=== PATIENT | male | born 1940 | race Caucasian/White ===

== ENCOUNTER 2017-12-30 11:13 | Outpatient (RCR) | payer MEDICARE, OTHER ==
[2017-12-27 10:21] LABS: PLATELET COUNT, AUTOMATED 180 K/uL (150-450)
[~2017-12-30 11:13] MED LIST: 0.910DIS17 IVP; ACET-2031 PO; ASC500 PO; ASPI-715 PO; CAR3.125 PO; CHOL10005 PO; DUONEB INH; FIN5 PO; FISH OIL 1,2001 CAP PO; GLUC-130 PO; GUAI600T PO; HYDR473S4 PO; LEVO750T23 PO; METO25TA23 PO; METO25TA93 PO; MULT1CAP41 PO; OMEP-218 PO; PANT40SU3 PO; PANT40TA65 PO; PRE5 PO; RAMI5CAP63 PO; SIMV-44 PO; SIMV10TA98 PO; SIMV5TAB60 PO; TAM4 PO; [UNRECOGNIZED DRUG - CODE] IV; [UNRECOGNIZED DRUG - CODE] IV; [UNRECOGNIZED DRUG - CODE] PO
[2017-12-30 11:20] VITALS: BP 143/76
--- NOTE | 2017-12-31 17:49 | ONCOLOGY FOLLOW UP NOTE ---
EVENT DATE: December 30, 2017 CHIEF COMPLAINT/REASON FOR VISIT Mr. Astudillo is a very pleasant gentleman with a history of low risk MDS with an IPSS score of 0, here for followup. HISTORY OF PRESENT ILLNESS Gagan returns. Overall he is doing okay. His cardiopulmonary issues are his biggest issue and there is concern for pulmonary hypertension. His MDS is quite stable and his labs are similar today as they were a year ago. He does require oxygen 24/7, and this is mostly unrelated to his MDS, as we would not expect to see a lower pulse oximetry with anemia alone. We did again discuss the rationale for erythropoietin therapy, but he is not interested at this time. His hemoglobin ranges between 9.5 and 11. His daughter continues to do quite well on a clinical trial for glioblastoma and she is actually back at work which is very exciting. Her therapy has been FDA approved now, although she still participates through the trial. No new issues today. SOCIAL HISTORY The patient is and has presented again with his . 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 FAMILY HISTORY Noncontributory. REVIEW OF SYSTEMS CONSTITUTIONAL: No fevers, chills, weight change or fatigue of concern. HEENT: No headache or vision changes. CARDIOVASCULAR: No chest pain, dyspnea on exertion or edema. RESPIRATORY: Positive dyspnea on exertion mild. Positive hypoxemia at altitude , on oxygen. Positive history of sleep apnea as well. GI: No nausea, vomiting. : No dysuria or hematuria. PSYCHIATRIC: No anxiety or depression. ENDOCRINE: No heat or cold intolerance. SKIN: No concerning lesions or rashes. HEMATOLOGIC/LYMPHATIC: No easy bruising or bleeding. Remainder of 14-point review of systems otherwise negative. PHYSICAL EXAMINATION VITAL SIGNS: Blood pressure 143/76, pulse 56, respiratory rate 16, temperature 97.1 Fahrenheit, oxygen saturation 90% on room air. Weight 73.3 kg. Pain 0/10 , fatigue 0/10. GENERAL: In stable condition, resting comfortably in the chair. HEENT: Normocephalic, atraumatic. CARDIOVASCULAR: Regular rate and rhythm. LUNGS: Clear. ABDOMEN: Soft, nontender. EXTREMITIES: No clubbing, cyanosis or edema. SKIN: No concerning rashes or lesions. No bruising. The remainder of the physical exam is otherwise unremarkable. IMPRESSION AND PLAN Mr. Astudillo is a very pleasant gentleman with the following: Low-grade myelodysplastic syndrome under active surveillance. We again discussed his treatment options including EPO. He is not interested in this at this time. Plan to see him every six months. We discussed potentially getting labs every three months, but he has been quite stable and he wants to manage costs. His insurance does cover his care overall well he believes. I answered all of his questions. We had a discussion about his daughter who has glioblastoma in [place] as well. High risk, high complexity. Billing: Return visit level 4. Total time 30 minutes, counseling time 20. MTDD
== END 2018-01-15 13:54 | disposition home or self-care (01) ==
LOC: ONC 11:13
PROVIDERS: ATTEND Internal Medicine
DX: D46.9 Myelodysplastic syndrome, unspecified (principal); Z99.81 Dependence on supplemental oxygen
CPT/HCPCS: 36415; 85025; G0463; 82040; 82247; 82310; 82374; 82435; 82565; 82947; 84075; 84132; 84155; 84295; 84450; 84460; 84520; 99212

== ENCOUNTER 2018-06-23 09:22 | Outpatient (RCR) | payer MEDICARE, OTHER ==
[2018-06-20 09:21] VITALS: BP 159/69
[2018-06-20 09:42] LABS: PLATELET COUNT, AUTOMATED 127 K/uL (150-450)
[2018-06-23 09:27] VITALS: BP 147/80
[2018-06-23] MEDS ORDERED: IBUP200C74 PO (09:29)
--- NOTE | 2018-06-24 03:45 | [facility] ONCOLOGY NOTE ---
EVENT DATE: June 23, 2018 CHIEF COMPLAINT/REASON FOR VISIT Mr. Astudillo is a very pleasant 78-year-old gentleman with low-grade MDS with an IPSS score of zero, here for followup. HISTORY OF PRESENT ILLNESS Gagan returns. Overall he is doing well. His biggest issues continue to be cardiopulmonary issues, and he follows with Cardiology. His MDS is quite stable, and his hemoglobin ranges between 10 and 12. He does require oxygen at night, but I do not believe this is related to his MDS. We discussed the potential for erythropoietin therapy in the future, but he is not interested and does not require it at this time. His daughter continues to do quite well from glioblastoma and was on the recent viral clinical trial with good success. Therapy has now been FDA-approved. No other issues today. SOCIAL HISTORY The patient is and has presented again with his . 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 FAMILY HISTORY Noncontributory. REVIEW OF SYSTEMS CONSTITUTIONAL: No fevers, chills, weight change or fatigue of concern. HEENT: No headache or vision changes. CARDIOVASCULAR: No chest pain, dyspnea on exertion or edema. RESPIRATORY: Positive dyspnea on exertion, mild. Positive hypoxemia at altitude, on oxygen. Positive history of sleep apnea as well. GI: No nausea, vomiting. : No dysuria or hematuria. PSYCHIATRIC: No anxiety or depression. ENDOCRINE: No heat or cold intolerance. SKIN: No concerning lesions or rashes. HEMATOLOGIC/LYMPHATIC: No easy bruising or bleeding. Remainder of 14-point review of systems otherwise negative. PHYSICAL EXAMINATION VITAL SIGNS: Blood pressure 147/80, pulse 67, respiratory rate 16, temperature 96.9 Fahrenheit, oxygen saturation 93% on room air. Weight 72.8 kg. Pain 4/10, fatigue 0/10. GENERAL: In stable condition, resting comfortably in the chair. HEENT: Normocephalic, atraumatic. CARDIOVASCULAR: Regular rate and rhythm. LUNGS: Clear. ABDOMEN: Soft, nontender, nondistended. EXTREMITIES: No clubbing, cyanosis or edema. LYMPHATIC: No abnormalities today. Remainder of physical exam unremarkable. IMPRESSION/REPORT/PLAN Mr. Astudillo is a very pleasant gentleman with the following: Low-grade myelodysplastic syndrome under active surveillance. We again discussed treatment options including EPO. He was very interested in the current research going on in myeloid malignancies, and we discussed that in detail today. We discussed the potential for venetoclax and Vidaza in the future if this is approved. It is currently not approved for low-risk myelodysplastic syndrome. He would like to get labs every six months, and I think this is reasonable given his stable labs. Over 20 minutes spent in counseling and answering questions today; high risk and complexity. BILLING: Return visit, level 4. Total time 30 minutes, counseling time 20. MTDD
== END 2018-07-16 13:25 | disposition home or self-care (01) ==
LOC: ONC 09:22
PROVIDERS: ATTEND Internal Medicine
DX: D46.9 Myelodysplastic syndrome, unspecified (principal); Z99.81 Dependence on supplemental oxygen
CPT/HCPCS: 36415; 85025; G0463; 82040; 82247; 82310; 82374; 82435; 82565; 82947; 84075; 84132; 84155; 84295; 84450; 84460; 84520; 99212

== ENCOUNTER 2018-07-04 08:15 | Outpatient (RCR) | payer MEDICARE, OTHER ==
--- NOTE | 2018-06-24 13:29 | PT INITIAL EVALUATION ---
MEDICAL DIAGNOSIS: Upper Back Pain TREATMENT DIAGNOSIS: LBP DATE OF ONSET: 06/18/18 SUBJECTIVE: Dong is a 78 year old man presenting to physical therapy for low back pain. Pain started last 06/18/18 after picking up his pug to put into the kennel in the car. Pt experienced immediate pain in low back. Pain has gotten better over the last week. Pt rates his pain at a 2-3/10. Pt states side-lying while sleeping makes pain better. Pt reports that standing from sitting and walking makes pain worse but pt was able to walk 40 minutes on the treadmill yesterday without restrictions. Pt is taking Advil occasionally to relive pain. No numbness or tingling radiating down either leg and pain is located at L4, slightly to the left. REHAB PROBLEM LIST: Increased Pain Decreased ROM Decreased Function Decreased ADL's Decreased Mobility PREVIOUS MEDICAL HISTORY: See EMR. History of oncology treatment. OBJECTIVE: ROM: Lumbar ROM: Flexion: Full, no pain. Extension: Full, slight pain in back. R side bend: Full, no pain. L SB: Minimal restrictions with pain in the back. R Rotation: Minimally restricted, no pain. L Rotation: Full, slight pain in the back. Palpation: Pt is tender to palpation at the L4 level and medial to the PSIS on the L. Mobility: Repeated movement lumbar screen: Flexion: no change in the pain. Extension: slight improvement in pain. Improved range of motion following repeated extension into R Rotation. Other Objective Findings: Oswestry Low Back Pain Disability Questionnaire: 9.5/50. ASSESSMENT: Pt presents with signs and symptoms consistent with lumbar strain with possible posterior derangement. Physical therapy is indicated to address the above listed impairments to improve ADL's. Short Term Goals Pt will improve lumbar ROM to full lumbar ROM within the next 4 weeks to improve overall function with ADL's. Pt will decrease to no pain within the next 4 weeks to improve overall function with ADL's. Pt will decrease Oswestry Low Back Pain Disability Questionnaire to1/50 to improve overall function with ADL's. Patient's Goals Decrease back pain. PLAN: Patient to be seen for Manual Therapy/STM/MET Strengthening/condition Range of Motion Spinal Stabilization Stretching Closed Chain Program Posture/Body mechanics Home Exercise Program Mech./Manual Traction Pelvic Floor 2x/Week for 4 Weeks If you have any questions, comments, or concerns about this report or plan, please contact me at . Thank you, Corry Stratton, PT, DPT, CLT MTDD
[~2018-07-04 08:15] MED LIST changes: +IBUP200C74 PO
--- NOTE | 2018-07-04 09:12 | PT PLAN OF CARE ---
Physician: Jasen Oseguera MD Patient is being seen: 2-3x/wk Therapist: Corry Stratton, PT, DPT, CLT & Inna Concepcion, SPT Medical Diagnosis: Upper Back Pain Treatment Diagnosis: LBP Date of Onset: 06/18/18 Date of Initial Evaluation: 06/24/18 Date patient was last seen: 07/02/18 Number of treatments: 2 Number of cancellations/No shows: 0 INTERVENTIONS: Manual Therapy/STM/MET Strengthening/condition Range of Motion Spinal Stabilization Stretching Closed Chain Program Posture/Body mechanics Home Exercise Program Mech./Manual Traction Pelvic Floor GOALS: Pt will improve lumbar ROM to full lumbar ROM within the next 4 weeks to improve overall function with ADL's. MET Pt will decrease to no pain within the next 4 weeks to improve overall function with ADL's. MET Pt will decrease Oswestry Low Back Pain Disability Questionnaire to 1/50 to improve overall function with ADL's. MET PATIENT'S GOAL: Decrease back pain. Status of Patient's Goals: 3/3 Goals Met Patient Compliance: Good Prognosis: Excellent Reasons for discharge from therapy: Dong is to discharge from physical therapy at this time secondary to completion of 3/3 functional goals. At the time of discharge pt has no pain with ADL's or recreational activities and is able to demonstrate good lifting and walking mechanics with core stability. Upon discharge pt is to continue with his HEP to maintain pain free status as well as seek further PT if any pain recurs. ROM: Lumbar ROM: All full, no pain. Mobility: Repeated movement lumbar screen: Flexion: no change in the pain. Extension: slight improvement in pain. Improved range of motion following repeated extension into R Rotation. Outcome Measures: Oswestry Low Back Pain Disability Questionnaire: 0/50. If you have any questions or concerns, please feel free to contact me at [phone]. Thank you, Corry Stratton, PT, DPT, CLT Inna Concepcion, SPT This Physical Therapist was present for the entire physical therapy session directing the services, making the skilled judgement, and was not engaged in treating another patient or doing another task at the same time as the treatment session. JULIANA
== END 2018-07-04 14:56 | disposition home or self-care (01) ==
LOC: PT 08:15
PROVIDERS: ATTEND Internal Medicine
DX: M54.5 Low back pain (principal)
CPT/HCPCS: 97161

== ENCOUNTER 2018-12-19 13:44 | Outpatient (RCR) | payer MEDICARE, OTHER ==
[~2018-12-19 13:44] MED LIST changes: -SIMV5TAB60 PO; +SIMV5TAB69 PO
== END 2018-12-22 17:06 | disposition home or self-care (01) ==
LOC: ONC 13:44
PROVIDERS: ATTEND Internal Medicine
DX: D46.9 Myelodysplastic syndrome, unspecified (principal)

== ENCOUNTER 2019-01-05 08:44 | Outpatient (RCR) | payer MEDICARE, OTHER ==
[2018-12-29 09:29] VITALS: BP 158/71
[2018-12-29 09:48] LABS: PLATELET COUNT, AUTOMATED 109 K/uL (150-450)
[2019-01-05 08:56] VITALS: BP 126/66
--- NOTE | 2019-01-06 08:41 | [facility] ONCOLOGY NOTE ---
EVENT DATE: January 05, 2019 CHIEF COMPLAINT/REASON FOR VISIT Mr. Astudillo is a pleasant 78-year old with low-grade MDS with an IPSS score of 0, here for followup. HISTORY OF PRESENT ILLNESS Gagan returns. Overall, he is doing well. His biggest issues continue to be cardiopulmonary and he follows with cardiology. He has shortness of breath and requires oxygen at times. His MDS has been stable with a hemoglobin ranging between 10 and 12 and so we have not yet initiated erythropoietin therapy. His white blood cell count is slightly lower than average, although he feels well and has not had issues with infection. I feel we need to watch him more closely than we have in the past - every six months. He would not like to be seen frequently but would agree to be seen in four months. He had one infection over the wound area, easily treated with antibiotics. No other issues to complain. He notes no changes. His daughter continues to do well from her glioblastoma and was on a recent viral clinical trial with good success. This therapy has now been FDA approved. SOCIAL HISTORY The patient is and has presented again with his . 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 FAMILY HISTORY Noncontributory. REVIEW OF SYSTEMS CONSTITUTIONAL: No fevers, chills, weight change or fatigue of concern. HEENT: No headache or vision changes. CARDIOVASCULAR: No chest pain, dyspnea on exertion or edema. RESPIRATORY: Positive dyspnea on exertion, mild. Positive hypoxemia at altitude, on oxygen. Positive history of sleep apnea as well. GI: No nausea, vomiting. : No dysuria or hematuria. PSYCHIATRIC: No anxiety or depression. ENDOCRINE: No heat or cold intolerance. SKIN: No concerning lesions or rashes. HEMATOLOGIC/LYMPHATIC: No easy bruising or bleeding. Remainder of 14-point review of systems otherwise negative. PHYSICAL EXAMINATION VITAL SIGNS: Blood pressure 126/66, pulse 61, respiratory rate 16, temperature 97.3 Fahrenheit, oxygen saturation 92% on room air. Weight 73.6 kg. Pain 0/10, fatigue 0/10. GENERAL: In stable condition, resting comfortably in the chair. HEENT: Normocephalic, atraumatic. LYMPHATIC: No appreciable cervical, supraclavicular or axillary adenopathy. CARDIOVASCULAR: Regular rate and rhythm today. LUNGS: Clear. ABDOMEN: Soft, nontender. No organomegaly or masses. EXTREMITIES: No clubbing, cyanosis or edema. SKIN: No rashes or lesions. PSYCHIATRIC: Normal mood and affect. Remainder of physical exam unremarkable. IMPRESSION/REPORT/PLAN Mr. Astudillo is a very pleasant gentleman with the following: Low-grade myelodysplastic syndrome, under active surveillance. We again discussed treatment options including EPO. We could look at the potential for venetoclax with Vidaza in the future if it is approved - it is not currently approved for low-risk myelodysplastic syndrome. He would like to get labs every six months but I think we need to check him sooner than that given the low white blood cell count most recently. He agrees to be seen in four months. Over 20 minutes spent in time answering questions today; high risk complexity. BILLING: Return visit, level 4. Total time 30 minutes, counseling time 20. MTDD
== END 2019-01-19 16:52 | disposition home or self-care (01) ==
LOC: ONC 08:44
PROVIDERS: ATTEND Internal Medicine
DX: D46.9 Myelodysplastic syndrome, unspecified (principal)
CPT/HCPCS: 36415; 82040; 82247; 82310; 82374; 82435; 82565; 82947; 84075; 84132; 84155; 84295; 84450; 84460; 84520; 85025; 99212

== ENCOUNTER 2019-02-25 13:55 | Inpatient (IN) | payer MEDICARE, OTHER ==
[~2019-02-25] VITALS: Ht 167.6 cm; Wt 72.9 kg
[2019-02-25] MEDS ORDERED: METO25TA93 PO (14:07)
[2019-02-25] MEDS ORDERED: NS(*) 0.9% 1000 ML BAG 1,000 ML IV ONE ×2 (14:11→14:15)
[2019-02-25 14:21] LABS: PLATELET COUNT, AUTOMATED 111 K/uL (150-450)
[2019-02-25] MEDS ORDERED: ALBUTEROL/IPRATROPIUM 3 ML NEB NEB ONE (14:30)
--- NOTE | 2019-02-25 14:36 | ER Report ---
History and Physical Time Seen By MD: 14:14 Hx. of Stated Complaint: COUGH, DECREASED OXYGEN SATURATIONS, FEVER HPI/ROS CHIEF COMPLAINT: Cough and shortness of breath HISTORY OF PRESENT ILLNESS: This is a 71-year-old male who presents to the emergency department for cough and shortness of breath. Patient states that over the last 2 days he's been feeling ill, subjectively he's had chills, no aches. With some shortness of breath, and a productive cough. He followed up with his primary care today, they noted that his oxygen on arrival was 83%, diminished lung sounds subsequently he was sent to the emergency department. Upon arrival the patient's oxygen is 84% on room air, he has a 101.5 temperature. He has been increasing his oxygen use with last couple days as well, typically he wears his oxygen only at night for sleep apnea. No headaches although his states that his cognition has been delayed or last day to day and a half. No rashes. He denies chest pain, he does have a significant cardiac history, including bypass surgery and CAD. No abdominal pain, nausea or vomiting. No diarrhea. REVIEW OF SYSTEMS: Constitutional: As above. Eyes: No discharge. ENT: No sore throat. Cardiovascular: No chest pain, no palpitations. Respiratory: As above. Gastrointestinal: No abdominal pain, no vomiting. Genitourinary: No hematuria. Musculoskeletal: No back pain. Skin: No rashes. Neurological: As above. Allergies: Coded Allergies: No Known Drug Allergies (Verified , 02/25/19) Home Meds Reported Medications Cholecalciferol (Vitamin D3) (VITAMIN D-3) 2,000 Unit Capsule, 5000 UNIT PO, CAPSULE 02/25/19 Metoprolol Tartrate (METOPROLOL TARTRATE) 25 Mg Tablet, 1 TAB PO QHS, TAB 02/25/19 Ibuprofen (ADVIL) 200 Mg Capsule, 1-2 CAP PO PRN, CAPSULE 06/23/18 Tamsulosin Hcl (Flomax) 0.4 Mg Cap, 0.4 MG PO DAILY, 0 Refills 12/15/09 Ramipril (Ramipril) 5 Mg Capsule, 5 MG PO HS, 0 Refills 12/15/09 Finasteride (Proscar) 5 Mg Tab, 5 MG PO DAILY, 0 Refills 12/15/09 Aspirin (Aspirin) 81 Mg Tablet.dr, 40 MG PO QODAY, 0 Refills 12/15/09 Discontinued Reported Medications Cholecalciferol (Vitamin D3) (VITAMIN D3) 1,000 Unit Tablet, 5000 UNIT PO, TAB 02/25/19 Cholecalciferol (Vitamin D3) (VITAMIN D3) 1,000 Unit Tablet, 1000 UNIT PO DAILY, TAB 10/10/16 Past Medical/Surgical History The patient has a past medical and surgical history of angina, CAD, bypass surgery, hypertension, hypercholesterolemia, sleep apnea, CPAP, pneumonia, anemia, colonoscopy, decreased urinary stream, elevated PSA, prostate biopsy, bone cancer in he'll at 9 years old, broken arm, wears glasses, aortic valve replacement, aortic aneurysm, right inguinal hernia repair, hip surgery 2, cataract surgery. Tonsillectomy. 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 Reviewed Nurses Notes: Yes Hx Smoking: No Smoking Status: Never Smoker Exposure to Second Hand Smoke?: No Hx Substance Use Disorder: No Hx Alcohol Use: No Constitutional Vital Sign - Last 24 Hours 02/25/19 02/25/19 02/25/19 02/25/19 13:59 14:00 14:19 14:30 Temp 101.5 Pulse 71 71 71 Resp 20 18 B/P (MAP) 124/56 123/58 (79) 105/59 (74) Pulse Ox 84 92 93 O2 Delivery Room Air O2 Flow Rate 2.0 02/25/19 02/25/19 02/25/19 02/25/19 14:32 14:32 14:42 15:00 Pulse 70 70 Resp 18 18 B/P (MAP) 111/52 (71) Pulse Ox 91 O2 Delivery Nasal Cannula O2 Flow Rate 2.0 02/25/19 15:30 Pulse 71 Resp 24 B/P (MAP) 106/58 (74) Pulse Ox 86 Physical Exam General Appearance: The patient is alert, has no immediate need for airway protection and no signs of toxicity. Eyes: Pupils equal and round no pallor or injection. ENT, Mouth: Mucous membranes are moist. Respiratory: Right lower base diminished, very faint and asked for a wheeze in the right middle and course in the right upper lobe, left lower lobe rhonchorous, left upper lobe clear. Cardiovascular: Regular rate and rhythm. Significant systolic murmur, no clicks or rubs. Gastrointestinal: Abdomen is soft and non tender, no masses, bowel sounds normal. Neurological: Alert and oriented 4, slightly delayed in answering questions although answering appropriately, moving all extremities. Following all commands. No focal neuro deficits. Skin: Warm and dry, no rashes. Musculoskeletal: Neck is supple non tender. Extremities are nontender, nonswollen and have full range of motion. DIFFERENTIAL DIAGNOSIS: After history and physical exam differential diagnosis was considered for shortness of breath including but not limited to pulmonary infectious process, COPD, asthma, pulmonary embolus and congestive heart failure. Medical Decision Making Data Points Result Diagram: 02/25/19 1404 02/25/19 1404 Laboratory Hematology Test 02/25/19 14:04 White Blood Count 2.1 k/uL (4.5-11.0) L Red Blood Count 3.80 M/uL (4.00-5.60) L Hemoglobin 11.4 g/dL (14.0-18.0) L Hematocrit 34.5 % (42.0-52.0) L Mean Corpuscular Volume 90.8 fL (80.0-96.0) Mean Corpuscular Hemoglobin 29.9 pg (26.0-33.0) Mean Corpuscular Hemoglobin Concent 32.9 g/dL (32.0-36.0) Red Cell Distribution Width 24.6 % (11.5-14.5) H Platelet Count 111 K/uL (150-450) L Mean Platelet Volume 9.4 fL (7.2-11.1) Neutrophils (%) (Auto) 64.7 % (39.4-72.5) Lymphocytes (%) (Auto) 19.3 % (17.6-49.6) Monocytes (%) (Auto) 14.6 % (4.1-12.4) H Eosinophils (%) (Auto) 0.2 % (0.4-6.7) L Basophils (%) (Auto) 1.2 % (0.3-1.4) Nucleated RBC Relative Count (auto) 0.1 /100WBC Neutrophils # (Auto) 1.3 K/uL (2.0-7.4) L Lymphocytes # (Auto) 0.4 K/uL (1.3-3.6) L Monocytes # (Auto) 0.3 K/uL (0.3-1.0) Eosinophils # (Auto) 0.0 K/uL (0.0-0.5) Basophils # (Auto) 0.0 K/uL (0.0-0.1) Nucleated RBC Absolute Count (auto) 0.00 K/uL Peripheral Blood Smear Yes Y/N Chemistry Test 02/25/19 14:04 Sodium Level 138 mmol/L (137-145) Potassium Level 4.3 mmol/L (3.5-5.0) Chloride Level 99 mmol/L (98-107) Carbon Dioxide Level 24 mmol/L (22-30) Blood Urea Nitrogen 18 mg/dl (9-21) Creatinine 1.20 mg/dl (0.66-1.25) Glomerular Filtration Rate Calc 58.6 Random Glucose 124 mg/dl (75-110) Lactate 2.0 mmol/L (0.7-2.1) Calcium Level 9.0 mg/dl (8.4-10.2) Total Bilirubin 1.6 mg/dl (0.2-1.3) Aspartate Amino Transf (AST/SGOT) 49 U/L (0-35) Alanine Aminotransferase (ALT/SGPT) 50 U/L (0-56) Alkaline Phosphatase 62 U/L (0-126) Total Protein 7.7 g/dl (6.3-8.2) Albumin 4.5 g/dl (3.5-5.0) Serology Test 02/25/19 15:55 Influenza Virus Type A (PCR) Negative (NEGATIVE) Influenza Virus Type B (PCR) Negative (NEGATIVE) Urinalysis Test 02/25/19 15:14 Urine Color Bailee Urine Clarity Slightly-cloudy Urine pH 5.0 pH (4.8-9.5) Urine Specific [place] 1.025 Urine Protein 100 mg/dL (NEGATIVE) Urine Glucose (UA) Negative mg/dL (NEGATIVE) Urine Ketones Trace mg/dL (NEGATIVE) Urine Blood Negative (NEGATIVE) Urine Nitrite Negative (NEGATIVE) Urine Bilirubin Negative (NEGATIVE) Urine Urobilinogen 2.0 mg/dL (0.2-1.9) Urine Leukocyte Esterase Negative (NEGATIVE) Urine RBC 1 /HPF (0-2/HPF) Urine WBC 1 /HPF (0-5/HPF) Urine Squamous Epithelial Cells Few /LPF (</=FEW) Urine Bacteria Negative /HPF (NONE-FEW) Urine Mucus Few /HPF (NONE-FEW) EKG/Imaging Imaging PATIENT NAME: Dnog Astudillo : 1940 MR: [id number] V: [id number] EXAM DATE: ORDERING PHYSICIAN: KYLE HAQUE TECHNOLOGIST: [place] [facility] [place] Astud[place] : 1940 Visit/Account:[id number] Date of Sevice: 02/25/2019 2 VIEWS CHEST INDICATION: Cough, SOB COMPARISON: xray from 04/15/17 FINDINGS: Stable postoperative change from cardiac surgery with a sternotomy, changes from CABG and a valve replacement. There is stable, borderline hyperinflation. No new failure, focal infiltrate, consolidation, effusion or pneumothorax. Stable clips overlying the right upper thorax. No acute bony finding. IMPRESSION: 1. Stable changes the thorax without acute finding. Report Dictated By: Catrachito Fernandes MD at 02/25/2019 3:15 PM Report E-Signed By: Catrachito Fernandes MD at 02/25/2019 3:17 PM WSN:[id number] ED Course/Re-evaluation Clinical Indication for ER IV: Hydration, IV Access ED Course The patient was admitted to room. A history and physical obtained. Differential diagnoses were considered. An IV was started. A CBC, CMP, lactate and blood cultures were obtained. Normal saline was administered at 500 mL per hour for a total of 1 L, two-view chest x-ray negative for any acute cardiac pulmonary process. CBC showing RBC 2.1, I receives 3.8, H&H 11.4 and 34.5, this is similar to the patient's previous studies, chemistry showing creatinine 1.2, lactate 2.0, concentrated UA, consistent with mild dehydration, pending influenza. 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 I am still concerned about a right lower lobe infiltrate, when compared to the patient's p revious x-rays, I did review the results with Dr. Darleen Lake, the hospitalist on- call, he's accepted the patient in the Hospital services, patient will be admitted for leukopenia, fever and cough. Pending the influenza out,, patient will be treated with antibiotics on the medical floor if the influenza negative. Influenza was negative. Improved aeration after a single DuoNeb. The patient did have a follow-up appointment with oncology 01/05/2019, they did state that his MDS has been stable, with a hemoglobin ranging from 10-12 no erythropoietin therapy initiated. White blood cell count consistently lower than average, has been doing well. 02/25/2019 3:38:26 pm I did speak with Dr. Darleen Lake, the hospitalist on-call, he is accepting the patient in the Hospital services, patient will be diagnosed with leukopenia, cough and Fever. Decision to Disposition Date: Feb 25, 2019 Decision to Disposition Time: 15:38 Depart Departure Latest Vital Signs Vital Signs Date Time Temp Pulse Resp B/P (MAP) Pulse Ox O2 Delivery O2 Flow Rate FiO2 02/25/19 15:30 71 24 106/58 (74) 86 02/25/19 14:32 Nasal Cannula 2.0 02/25/19 13:59 101.5 Impression: Primary Impression: Cough Additional Impressions: Fever Leukopenia Condition: Improved Disposition: Admitted from ER Referrals: ANDREINA COREY MD (PCP) Problem Qualifiers Additional Impressions: Fever Fever type: unspecified Qualified Codes: R50.9 - Fever, unspecified Leukopenia Leukopenia type: unspecified Qualified Codes: D72.819 - Decreased white blood cell count, unspecified KYLE HAQUE CDL B DRIVER- Feb 25, 2019 14:36
--- NOTE | 2019-02-25 15:24 | RADIOLOGY IMAGING REPORT ---
[place] [facility] [place] NAME: Dong Astudillo : 1940 MR: [id number] V: [id number] EXAM DATE: ORDERING PHYSICIAN: KYLE HAQUE TECHNOLOGIST: Location: [facility] [place] Patient: Dong Astudillo : 1940 Visit/Account:[id number] Date of Sevice: 02/25/2019 2 VIEWS CHEST INDICATION: Cough, SOB COMPARISON: xray from 04/15/17 FINDINGS: Stable postoperative change from cardiac surgery with a sternotomy, changes from CABG and a valve rep lacement. There is stable, borderline hyperinflation. No new failure, focal infiltrate, consolidati on, effusion or pneumothorax. Stable clips overlying the right upper thorax. No acute bony finding. IMPRESSION: 1. Stable changes the thorax without acute finding. Report Dictated By: Catrachito Fernandes MD at 02/25/2019 3:15 PM Report E-Signed By: Catrachito Fernandes MD at 02/25/2019 3:17 PM WSN:[id number]
[2019-02-25 16:36] VITALS: BP 122/74
[2019-02-25] MEDS ORDERED: CHOL200074 PO (17:10)
[2019-02-25] MEDS ORDERED: CHOL10005 PO (17:10)
[2019-02-25] MEDS: CEFEPIME HCL 2 GM VIAL IVP SCH (17:15)
--- NOTE | 2019-02-25 17:21 | History & Physical ---
History of Present Illness Chief Complaint Fever and cough History of Present Illness 79yo male with PMHx significant for MDS, CABG, aortic valve replacement. He reports onset of cough productive of yellowish sputum approximately 36-48 hours ago. He had associated dyspnea and fevers/chills develop in the past 24 hours as well. He denies any CP/abdominal pain/N/V/diarrhea/urinary complaints/rashes. Several of his acquaintances have been ill recently with "colds". He travelled to [facility] and [place], [place] during the past 4 months, but has been in [facility] for past 2 months. He does not recall any insect (tick/mosquito bites). He was evaluated in his primary care provider's clinic and referred to the ER for evaluation. His CXR does not show an infiltrate. His CBC is notable for mild pancytopenia. UA is essentially clear. Lactate level is normal. Influenza screen is pending. He was recommended for admission. History Problems: (1) CAD (coronary artery disease) Status: Chronic (2) Hx of CABG Status: Chronic (3) History of aortic valve replacement Status: Chronic (4) History of aortic aneurysm repair Status: Chronic (5) MDS (myelodysplastic syndrome) Status: Chronic (6) HTN (hypertension) Status: Chronic Home Meds Reported Medications Cholecalciferol (Vitamin D3) (VITAMIN D-3) 2,000 Unit Capsule, 5000 UNIT PO, CAPSULE 02/25/19 Metoprolol Tartrate (METOPROLOL TARTRATE) 25 Mg Tablet, 1 TAB PO QHS, TAB 02/25/19 Ibuprofen (ADVIL) 200 Mg Capsule, 1-2 CAP PO PRN, CAPSULE 06/23/18 Tamsulosin Hcl (Flomax) 0.4 Mg Cap, 0.4 MG PO DAILY, 0 Refills 12/15/09 Ramipril (Ramipril) 5 Mg Capsule, 5 MG PO HS, 0 Refills 12/15/09 Finasteride (Proscar) 5 Mg Tab, 5 MG PO DAILY, 0 Refills 12/15/09 Aspirin (Aspirin) 81 Mg Tablet.dr, 40 MG PO QODAY, 0 Refills 12/15/09 Discontinued Reported Medications Cholecalciferol (Vitamin D3) (VITAMIN D3) 1,000 Unit Tablet, 5000 UNIT PO, TAB 02/25/19 Cholecalciferol (Vitamin D3) (VITAMIN D3) 1,000 Unit Tablet, 1000 UNIT PO DAILY, TAB 10/10/16 Allergies: Coded Allergies: No Known Drug Allergies (Verified , 02/25/19) Other Social/Family Hx He is and lives near [place], [place]. Hx Smoking: No Smoking Status: Never Smoker Exposure to Second Hand Smoke?: No Caffeine Intake: Coffee, Tea Caffeine/Cups Per Day: 1 TO 2 CUPS COFFEE PER DAY. 1 GLASS OF TEA PER DAY Hx Alcohol Use: Yes Alcohol Used: Wine Hx Substance Use Disorder: No Review of Systems Constitutional: Fever, Chills Neurological: Weakness Cardiovascular: No Chest Pain Respiratory: Shortness of Breath, Cough Gastrointestinal: No Nausea, No Vomiting, No Diarrhea, No Abdominal Pain Genitourinary: No Dysuria, No Hematuria Musculoskeletal: No Pain, No Impaired Mobility Exam Vital Signs Vital Signs Date Time Temp Pulse Resp B/P (MAP) Pulse Ox O2 Delivery O2 Flow Rate FiO2 02/25/19 16:36 103.1 82 18 122/74 (90) 91 Nasal Cannula 2.0 General Appearance: Alert, Awake, Other (appears fatigued) Neuro: No Gross deficits Eyes: PERRLA ENT: Oropharynx Clear Neck: No Masses Cardiovascular: Regular Rate and Rhythm (with systolic murmur) Respiratory: Other (diffuse rhonchi/no rales or wheezes noted) Chest: No Tenderness, Other (sternotomy scar and right upper chest scar) GI: Abd Soft and Non-Tender (BS present) : No CVA Tenderness Extremities: Warm, Perfused Integumentary: Other (no rashes noted) Psych: Alert & Oriented X3 Medical Decision Making Data Points Result Diagram: 02/25/19 1404 02/25/19 1404 Item Value Date Time Albumin 4.5 g/dl 02/25/19 1404 Total Protein 7.7 g/dl 02/25/19 1404 Alkaline Phosphatase 62 U/L 02/25/19 1404 Alanine Aminotransferase (ALT/SGPT) 50 U/L 02/25/19 1404 Aspartate Amino Transf (AST/SGOT) 49 U/L H 02/25/19 1404 Total Bilirubin 1.6 mg/dl H 02/25/19 1404 Calcium Level 9.0 mg/dl 02/25/19 1404 Lactate 2.0 mmol/L 02/25/19 1404 Urine Mucus Few /HPF 02/25/19 1514 Urine Bacteria Negative /HPF 02/25/19 1514 Urine Squamous Epithelial Cells Few /LPF 02/25/19 1514 Urine WBC 1 /HPF 02/25/19 1514 Urine RBC 1 /HPF 02/25/19 1514 Urine Leukocyte Esterase Negative 02/25/19 1514 Urine Urobilinogen 2.0 mg/dL 02/25/19 1514 Urine Bilirubin Negative 02/25/19 1514 Urine Nitrite Negative 02/25/19 1514 Urine Blood Negative 02/25/19 1514 Urine Ketones Trace mg/dL 02/25/19 1514 Urine Glucose (UA) Negative mg/dL 02/25/19 1514 Urine Protein 100 mg/dL 02/25/19 1514 Urine Specific [place] 1.025 02/25/19 1514 Urine pH 5.0 pH 02/25/19 1514 Urine Clarity Slightly-cloudy 02/25/19 1514 Urine Color Bailee 02/25/19 1514 EKG / Imaging Imaging PATIENT NAME: Dong Astudillo : 1940 MR: [id number] V: [id number] EXAM DATE: ORDERING PHYSICIAN: KYLE HAQUE TECHNOLOGIST: Location: [facility] Patient: Dong Astudillo : 1940 Visit/Account:[id number] Date of Sevice: 02/25/2019 2 VIEWS CHEST INDICATION: Cough, SOB COMPARISON: xray from 04/15/17 FINDINGS: Stable postoperative change from cardiac surgery with a sternotomy, changes from CABG and a valve replacement. There is stable, borderline hyperinflation. No new failure, focal infiltrate, consolidation, effusion or pneumothorax. Stable clips overlying the right upper thorax. No acute bony finding. IMPRESSION: 1. Stable changes the thorax without acute finding. Report Dictated By: Catrachito Fernandes MD at 02/25/2019 3:15 PM Report E-Signed By: Catrachito Fernandes MD at 02/25/2019 3:17 PM WSN:-S Assessment and Plan Problems: (1) Fever Status: Acute Assessment & Plan: Will admit for further evaluation and treatment. Await influenza screen results - treat as needed if positive. Based on symptoms and evaluation thus far, I suspect he may have an acute viral illness, but will p lace on broad spectrum IV antibiotic coverage due to immunosuppressed state secondary to MDS with pancytopenia. Cultures of blood and sputum. Will plan on recheck CXR after some IV fluids as well. Watch closely. (2) Cough Status: Acute Assessment & Plan: Initial CXR is negative. Will recheck in AM. See above. (3) Leukopenia Status: Acute Assessment & Plan: Due to MDS. Will cover with antibiotics as noted. If influenza screen is positive will treat with Tamiflu. (4) CAD (coronary artery disease) Status: Chronic Assessment & Plan: Will continue with his aspirin and metoprolol. (5) HTN (hypertension) Status: Chronic Assessment & Plan: Will continue with his metoprolol and ramipril with parameters. (6) MDS (myelodysplastic syndrome) Status: Chronic Assessment & Plan: He has been followed in the [facility]. He is not currently receiving any specific treatment. He has had mild pancytopenia for the past few years. Copies to: ANDREINA COREY MD; MARY RAMIREZ MD ; Venous Thromboembolism Antithrombotics Is Pt On Any Antithrombotics?: No Prophylaxis Tx Contraindicated Pharmacological Contraindicati: Low Platelet Count (ANAMARIA hose and SCD) Exam Sepsis Risk: Sepsis Risk Problem Qualifiers (1) Fever: Fever type: unspecified Qualified Codes: R50.9 - Fever, unspecified (2) Leukopenia: Leukopenia type: unspecified Qualified Codes: D72.819 - Decreased white blood cell count, unspecified CHRIS LEON MD Feb 25, 2019 17:21
[2019-02-25] MEDS: DOXYCYCLINE HYCL 100 MG VIAL 100 MG in NS(*) 0.9% 250 ML BAG 250 ML IV SCH (17:43)
[2019-02-25] MEDS: ACETAMINOPHEN 325 MG TAB PO PRN (18:35)
[2019-02-25 19:07] VITALS: BP 110/68
[2019-02-25] MEDS: RAMIPRIL 2.5 MG CAP PO SCH (21:00)
[2019-02-25 21:24] VITALS: BP 105/57
[2019-02-25] MEDS: NS(*) 0.9% 1000 ML BAG 1,000 ML IV PRN (22:31)
[2019-02-25] MEDS: LEVALBUTEROL 1.25 MG/3 ML NEB NEB PRN (23:17)
[2019-02-26] VITALS (9 sets, daily range): BP systolic 98–148; BP diastolic 52–94; Ht 167.6 cm; Wt 72.9 kg
[2019-02-26] MEDS: ACETAMINOPHEN 325 MG TAB PO PRN ×2 (00:52→17:06)
[2019-02-26] MEDS: CEFEPIME HCL 2 GM VIAL IVP SCH ×2 (04:53→17:07)
[2019-02-26] MEDS: DOXYCYCLINE HYCL 100 MG VIAL 100 MG in NS(*) 0.9% 250 ML BAG 250 ML IV SCH ×2 (05:28→17:07)
[2019-02-26] MEDS: LEVALBUTEROL 1.25 MG/3 ML NEB NEB PRN (05:44)
[2019-02-26 05:48] LABS: PLATELET COUNT, AUTOMATED 66 K/uL (150-450)
--- NOTE | 2019-02-26 06:38 | RADIOLOGY IMAGING REPORT ---
FACILITY: [facility] - [place] PATIENT NAME: Dong Astudillo : 1940 MR: [id number] V: [id number] EXAM DATE: ORDERING PHYSICIAN: CHRIS LEON TECHNOLOGIST: Location: [facility] Patient: Dong Astudillo : 1940 Visit/Account:[id number] Date of Sevice: 02/26/2019 PORTABLE CHEST: Indication: Fever. Technique: A single frontal film was obtained. Comparison: 02/25/2019 and 04/15/2017 Skeletal and soft tissue structures: Intact and unchanged. Heart and mediastinum: Stable. Lung merino: Well-expanded. No focal parenchymal consolidation or volume loss. Pleural spaces: Unremarkable. Impression: No acute process or significant change. Report Dictated By: Brandon Hull MD at 02/26/2019 6:29 AM Report E-Signed By: Brandon Hull MD at 02/26/2019 6:32 AM WSN:[id number]
[2019-02-26] MEDS: METOPROLOL SUCC XL 25 MG TABCR PO SCH (08:24)
[2019-02-26] MEDS: ASPIRIN 81 MG ENTERIC COATED PO SCH (08:25)
[2019-02-26] MEDS: FINASTERIDE 5 MG TAB PO SCH (08:25)
[2019-02-26] MEDS: TAMSULOSIN HCL 0.4 MG CAP PO SCH (08:25)
[2019-02-26] MEDS ORDERED: VANCOMYCIN(*) 1 GM VIAL 2 GM in NS(*) 0.9% 500 ML BAG 500 ML IVPB ONE ×2 (09:30→11:00)
--- NOTE | 2019-02-26 10:04 | NUR ---
0600 Vibramycin not given. Pump appears to have been set but not started when the abx was scanned. Contacted pharmacy about the issue and I will run the Vibramycin first and then retime the am vancomycin dose
[2019-02-26] MEDS ORDERED: DOXYCYCLINE HYCL 100 MG VIAL 100 MG in NS(*) 0.9% 250 ML BAG 250 ML IV ONE (10:10)
[2019-02-26] MEDS: NS(*) 0.9% 1000 ML BAG 1,000 ML IV PRN (12:04)
--- NOTE | 2019-02-26 13:36 | Hospitalist Progress Note ---
Subjective Progress Notes Subjective Continues to have fevers, feels better than previous. Patient Complains of: Respiratory: Cough Gastrointestinal: No Nausea, No Vomiting Physical Exam Vital Signs Date Time Temp Pulse Resp B/P (MAP) Pulse Ox O2 Delivery O2 Flow Rate FiO2 02/26/19 11:10 100.7 74 18 113/63 (80) 91 Nasal Cannula 1.0 Intake and Output 02/26/19 07:02 Intake Total 1113 ml Output Total 375 ml Balance 738 ml Intake Oral 340 ml IV Total 773 ml Output Urine Total 375 ml # Voids 2 # Bowel Movements 1 General Appearance: Awake, No Acute Distress (febrile) Neuro: No Gross deficits Cardiovascular: Normal Rhythm & Peripheral Pulses Respiratory: No Respiratory Distress (coarse breath sounds b/l) GI: Soft and Non-Tender Extremities: Soft and Non Tender, Warm, Pulses, Perfused Result Diagram: 02/26/1950902/26/19509 Assessment and Plan Problems: (1) Fever Status: Acute Assessment & Plan: BCx NGTD. Sputum with GPC, GNR await culture results, on empiric Cefepime, doxycycline. Add vancomycin. (2) Cough Status: Acute Assessment & Plan: Initial CXR is negative. Recheck negative, suspect he may mount insufficient immune response to produce infiltrate. Covering as pneumonia in setting of MDS. (3) Leukopenia Status: Acute Assessment & Plan: Due to MDS. (4) CAD (coronary artery disease) Status: Chronic Assessment & Plan: Will continue with his aspirin and metoprolol. (5) HTN (hypertension) Status: Chronic Assessment & Plan: Will continue with his metoprolol and ramipril with parameters. (6) MDS (myelodysplastic syndrome) Status: Chronic Assessment & Plan: He has been followed in the [facility]. He is not currently receiving any specific treatment. He has had mild pancytopenia for the past few years. Exam Sepsis Risk: No Definite Risk Problem Qualifiers (1) Fever: Fever type: unspecified Qualified Codes: R50.9 - Fever, unspecified (2) Leukopenia: Leukopenia type: unspecified Qualified Codes: D72.819 - Decreased white blood cell count, unspecified JERI LAWSONANDREW Feb 26, 2019 13:36
[2019-02-26] MEDS: RAMIPRIL 2.5 MG CAP PO SCH (21:00)
[2019-02-26] MEDS: VANCOMYCIN(*) 1 GM VIAL 1 GM, VANCOMYCIN (*) 0.5 GM VIAL 0.25 GM in NS(*) 0.9% 250 ML B... IVPB SCH (23:04)
[2019-02-27] MEDS: LEVALBUTEROL 1.25 MG/3 ML NEB NEB PRN ×2 (01:22→21:45)
[2019-02-27] MEDS: NS(*) 0.9% 1000 ML BAG 1,000 ML IV PRN (04:19)
[2019-02-27] MEDS: CEFEPIME HCL 2 GM VIAL IVP SCH ×2 (05:22→16:17)
[2019-02-27] MEDS: DOXYCYCLINE HYCL 100 MG VIAL 100 MG in NS(*) 0.9% 250 ML BAG 250 ML IV SCH ×2 (05:27→17:19)
[2019-02-27 06:09] VITALS: BP 109/64
[2019-02-27 06:44] LABS: PLATELET COUNT, AUTOMATED 52 K/uL (150-450)
[2019-02-27] MEDS: METOPROLOL SUCC XL 25 MG TABCR PO SCH (08:49)
[2019-02-27] MEDS: FINASTERIDE 5 MG TAB PO SCH (08:49)
[2019-02-27] MEDS: TAMSULOSIN HCL 0.4 MG CAP PO SCH (08:49)
[2019-02-27] MEDS: ASPIRIN 81 MG ENTERIC COATED PO SCH (08:50)
[2019-02-27] MEDS: VANCOMYCIN(*) 1 GM VIAL 1 GM, VANCOMYCIN (*) 0.5 GM VIAL 0.25 GM in NS(*) 0.9% 250 ML B... IVPB SCH ×2 (10:52→22:26)
--- NOTE | 2019-02-27 11:20 | NUR ---
Physical Therapy Impression PT/OT co-eval completed for pt safety. Pt tolerated ambulation with PT assist for IV pole and OT with CGA on gait belt. Pt tolerated 120' within the room, using FWW, with standing rest breaks for energy conservation and line management with turns. Pt did require slight Min assist from OT during turn to sit at chair upon completion of ambulation. Supplemental O2 at 1 L/min throughout and O2 sats in upper 80's to low 90's during exertion. Physical Therapy Goals 1. Pt to be modified indep with sit to/from supine and bed mobility 2. Pt to be modified indep with sit to/from stand transfers 3. Pt to ambulate x 100' with least restrictive device and SBA/Modified indep Patient's Goals
--- NOTE | 2019-02-27 11:32 | NUR ---
Occupational Therapy Impression OT evaluation completed. CGA ambulation in room with RW. SpO2 WNL on 1L. Energy conservation principles incorporated (use of shower chair). Declined toileting at this time. Pt may benefit from HH services upon discharge pending progress. Occupational Therapy Goals 1) Pt will be SBA UB/LB dressing. 2) Pt will be SBA grooming/hygiene. 3) Pt will be SBA toilet task. Patient's Goal
--- NOTE | 2019-02-27 12:06 | Hospitalist Progress Note ---
Subjective Progress Notes Subjective The patient states he is feeling better today. He continues to have a productive cough. Physical Exam Vital Signs Date Time Temp Pulse Resp B/P (MAP) Pulse Ox O2 Delivery O2 Flow Rate FiO2 02/27/19 10:59 98.3 02/27/19 07:46 91 Nasal Cannula 1.0 02/27/19 06:09 80 20 109/64 (79) Intake and Output 02/27/19 07:02 Intake Total 4539.5 ml Output Total 850 ml Balance 3689.5 ml Intake Oral 1120 ml IV Total 3419.5 ml Output Urine Total 850 ml # Voids 3 # Bowel Movements 1 General Appearance: Alert, Awake, No Acute Distress Neuro: No Gross deficits Cardiovascular: Regular Rate and Rhythm Respiratory: Other (Scattered mild rhonchi.) GI: Soft and Non-Tender Extremities: Warm, Perfused Psych: Appropriate Mood & Affect Result Diagram: 02/27/1951302/26/19 0510 Assessment and Plan Problems: (1) Fever Status: Acute Assessment & Plan: Blood cultures are no growth to date. Sputum with normal prasad. He was started empirically on Cefepime, doxycycline. Vancomycin was added due to persistent fever. Fever has improved now. (2) Cough Status: Acute Assessment & Plan: Initial CXR was negative. A repeat CXR was also negative. He may not have a sufficient immune response to produce infiltrate. Covering as pneumonia in setting of MDS. He is improving on antibiotics. (3) Leukopenia Status: Acute Assessment & Plan: Due to MDS. (4) CAD (coronary artery disease) Status: Chronic Assessment & Plan: Will continue with his aspirin and metoprolol. (5) HTN (hypertension) Status: Chronic Assessment & Plan: Will continue with his metoprolol and ramipril with parameters. (6) MDS (myelodysplastic syndrome) Status: Chronic Assessment & Plan: He has been followed in the [facility]. He is not currently receiving any specific treatment. He has had mild pancytopenia for the past few years. Time Spent on Plan of Care: < 30 min Exam Sepsis Risk: No Definite Risk Problem Qualifiers (1) Fever: Fever type: unspecified Qualified Codes: R50.9 - Fever, unspecified (2) Leukopenia: Leukopenia type: unspecified Qualified Codes: D72.819 - Decreased white blood cell count, unspecified RUTH LEON MD Feb 27, 2019 12:06
--- NOTE | 2019-02-27 13:16 | Antimicrobial Stewardship ---
Antimicrobial Time Out Antimicrobial Stewardship Indications: CAP Antimicrobial Used Cefepime and Doxycycline started on 02/25 and Vancomycin added on 02/27 due to persistent fevers. Start Date: Feb 25, 2019 Culture Results: No (Culture results pending) Eligible for PO Conversion Eligable for PO Conversion: No Comments Comments treat for at least 5 days. RUTH MATIAS Feb 27, 2019 13:16
[2019-02-27 14:15] VITALS: BP 125/64
[2019-02-27 20:21] VITALS: BP 119/60
[2019-02-27] MEDS: RAMIPRIL 2.5 MG CAP PO SCH (20:22)
[2019-02-28 03:06] VITALS: BP 111/54
[2019-02-28] MEDS: CEFEPIME HCL 2 GM VIAL IVP SCH (04:31)
[2019-02-28] MEDS: DOXYCYCLINE HYCL 100 MG VIAL 100 MG in NS(*) 0.9% 250 ML BAG 250 ML IV SCH (05:27)
[2019-02-28] MEDS ORDERED: DOXY-181 PO (09:17)
--- NOTE | 2019-02-28 09:22 | Hospitalist Depart ---
Discharge Summary Reason for Hosp/Final Diag: (1) Fever Status: Acute Hospital Course & Plan: He did present with fever, cough, and shortness of breath. However, multiple chest x-rays were negative for pneumonia. We did treat him empirically with cefepime, doxycycline, and vancomycin. His fever resolved and his breathing improved. His cultures have all been negative. He will discharge to complete a course of oral doxycycline. (2) Leukopenia Status: Acute Hospital Course & Plan: Secondary to MDS. (3) CAD (coronary artery disease) Status: Chronic Hospital Course & Plan: Will continue with his aspirin and metoprolol. (4) HTN (hypertension) Status: Chronic Hospital Course & Plan: Will continue with his metoprolol and ramipril. (5) MDS (myelodysplastic syndrome) Status: Chronic Hospital Course & Plan: He has been followed in the [facility]. Departure Latest Vital Signs Vital Signs 02/28/19 03:06 Temp 99.6 Pulse 58 Resp 20 B/P (MAP) 111/54 (73) Pulse Ox 96 O2 Delivery Nasal Cannula O2 Flow Rate 3.0 Weight (Pounds): 160 Weight (Ounces): 10.0 Result Diagram: 02/27/19 0514 02/26/19 0510 Condition: Improved Discharge: Home, Self Care Discharge Instructions Home Meds Active Scripts Doxycycline Hyclate (DOXYCYCLINE HYCLATE) 100 Mg Capsule, 100 MG PO BID, #10 CAPSULE Prov:ANDREINA SAMUEL DO 02/28/19 Reported Medications Cholecalciferol (Vitamin D3) (VITAMIN D-3) 2,000 Unit Capsule, 5000 UNIT PO, CAPSULE 02/25/19 Metoprolol Tartrate (METOPROLOL TARTRATE) 25 Mg Tablet, 1 TAB PO QHS, TAB 02/25/19 Ibuprofen (ADVIL) 200 Mg Capsule, 1-2 CAP PO PRN, CAPSULE 06/23/18 Tamsulosin Hcl (Flomax) 0.4 Mg Cap, 0.4 MG PO DAILY, 0 Refills 12/15/09 Ramipril (Ramipril) 5 Mg Capsule, 5 MG PO HS, 0 Refills 12/15/09 Finasteride (Proscar) 5 Mg Tab, 5 MG PO DAILY, 0 Refills 12/15/09 Aspirin (Aspirin) 81 Mg Tablet.dr, 40 MG PO QODAY, 0 Refills 12/15/09 Discontinued Reported Medications Cholecalciferol (Vitamin D3) (VITAMIN D3) 1,000 Unit Tablet, 5000 UNIT PO, TAB 02/25/19 Cholecalciferol (Vitamin D3) (VITAMIN D3) 1,000 Unit Tablet, 1000 UNIT PO DAILY, TAB 10/10/16 Diet: Regular Activity: As Tolerated Copies to: ANDREINA COREY MD ; Venous Thromboembolism Antithrombotics Is Pt On Any Antithrombotics?: No Problem Qualifiers (1) Fever: Fever type: unspecified Qualified Codes: R50.9 - Fever, unspecified (2) Leukopenia: Leukopenia type: unspecified Qualified Codes: D72.819 - Decreased white blood cell count, unspecified ANDREINA SAMUEL DO Feb 28, 2019 09:22
[2019-02-28] MEDS: ASPIRIN 81 MG ENTERIC COATED PO SCH (09:25)
[2019-02-28] MEDS: FINASTERIDE 5 MG TAB PO SCH (09:25)
[2019-02-28] MEDS: TAMSULOSIN HCL 0.4 MG CAP PO SCH (09:26)
[2019-02-28] MEDS: METOPROLOL SUCC XL 25 MG TABCR PO SCH (09:26)
[2019-02-28 09:28] VITALS: BP 133/74
== END 2019-02-28 11:20 | disposition home or self-care (01) | DRG 202 ==
LOC: ER 13:58 → INTOOBSV 15:55 → MED 15:55 → OBSVTOIN 02-26
PROVIDERS: ADMIT Internal Medicine; ATTEND Internal Medicine
DX: J20.9 Acute bronchitis, unspecified (principal); D61.818 Other pancytopenia; I25.10 Atherosclerotic heart disease of native coronary artery without angina pectoris; I10 Essential (primary) hypertension; D46.9 Myelodysplastic syndrome, unspecified; Z95.1 Presence of aortocoronary bypass graft; E78.00 Pure hypercholesterolemia, unspecified; G47.30 Sleep apnea, unspecified; Z85.830 Personal history of malignant neoplasm of bone; Z95.2 Presence of prosthetic heart valve; R09.02 Hypoxemia
CPT/HCPCS: 36415; 71045; 71046; 80202; 81001; 82040; 82247; 82310; 82374; 82435; 82565; 82947; 83605; 84075; 84132; 84155; 84295; 84450; 84460; 84520; 85025; 87040; 87070; 87205; 87502; 94640; 96360; 97161; 97165; 99284; G0378; J0692; J3370; J3490; J7030; J7040; J7050